=== PATIENT | female | born 1985 | race Caucasian/White ===

== ENCOUNTER 2016-12-07 16:33 | Emergency (ER) | payer MEDICAID ==
[~2016-12-07] VITALS: Ht 170.2 cm; Wt 92.1 kg
[2016-12-07 17:08] VITALS: BP 97/51
--- NOTE | 2016-12-07 17:55 | NUR ---
PT AMBULATED TO ER BED #11.
--- NOTE | 2016-12-07 18:00 | NUR ---
31/F PRESENT TO ER C/O BILATERAL FLANK AND PELVIC PAIN x 5 DAYS. PAIN 9/10, BURNING UPON URINATION, CHILLS. PT DENIES NVD. AAOx4, PERRLA, BREATHING EVEN AND UNLABORED. ERMD NOTIFIED OF PATIENT STATUS.
--- NOTE | 2016-12-07 18:19 | NUR ---
Patient being evaluated by physician at bedside.
[2016-12-07] MEDS ORDERED: NACL 0.9% 1,000 ML IV SCH (18:20)
[2016-12-07] MEDS ORDERED: KETOROLAC 30 MG/ML VIAL IVP ONE (18:20)
[2016-12-07] MEDS ORDERED: ONDANSETRON 4 MG/2 ML VIAL IVP ONE (18:20)
[2016-12-07 18:45] LABS: BASOPHILS # (AUTO) 0.2 K/uL (0.00-0.22); BASOPHILS % (AUTO) 2.3 % (0.0-2.0); EOSINOPHILS # (AUTO) 0.1 K/uL (0-0.4); EOSINOPHILS % (AUTO) 1.2 % (0.0-4.0); HEMATOCRIT 43.5 % (36-48); HEMOGLOBIN 14.3 g/dL (12.0-16.0); LYMPHOCYTES # (AUTO) 1.6 K/uL (2.5-16.5); LYMPHOCYTES % (AUTO) 20.4 % (20.5-51.1); MEAN CORPUSCULAR HEMOGLOBIN 28 pg (27-31); MEAN CORPUSCULAR HGB CONC 33 g/dL (33-37); MEAN CORPUSCULAR VOLUME 85 fL (80-94); MONOCYTES # (AUTO) 0.6 K/uL (0.8-1.0); MONOCYTES % (AUTO) 7.8 % (1.7-9.3); NEUTROPHILS # (AUTO) 5.6 K/uL (1.8-7.7); NEUTROPHILS % (AUTO) 68.3 % (42.2-75.2); PLATELET COUNT (AUTO) 206 K/uL (140-450); RED BLOOD CELL COUNT(AUTO) 5.13 MIL/uL (4.20-5.40); RED CELL DISTRIBUTION WIDTH 12.5 % (11.6-13.7); WHITE BLOOD COUNT (AUTO) 8.1 K/uL (4.8-10.8)
[2016-12-07] MEDS ORDERED: cefTRIAXone 1,000 MG VIAL ONE (18:45)
[2016-12-07 18:55] LABS: ANION GAP 7.3 (8-16); CARBON DIOXIDE 31.8 mmol/L (21-32); CREATININE 0.6 mg/dL (0.6-1.3); POTASSIUM 4.1 mmol/L (3.5-5.1)
--- NOTE | 2016-12-07 18:56 | NUR ---
PT RESTING, FAMILY AT BEDSIDE. VSS; PATIENT POSITIONED FOR COMFORT; HOB ELEVATED; BEDRAILS UP X2; BED DOWN. ER MD MADE AWARE OF PT STATUS.
[2016-12-07 19:01] LABS: ALBUMIN 4.2 g/dL (3.4-5.0); TOTAL BILIRUBIN 0.2 mg/dL (0.0-1.0)
[2016-12-07 19:14] LABS: BILIRUBIN,URINE NEGATIVE (NEGATIVE); BLOOD, URINE 1+ (NEGATIVE); LEUKOCYTE ESTERASE ,URINE NEGATIVE (NEGATIVE); NITRITE, URINE NEGATIVE (NEGATIVE); UGLUCOSE NEGATIVE (NEGATIVE)
--- NOTE | 2016-12-07 19:15 | NUR ---
RECEIVED REPORT FROM BREONNA DAVIS. PT AWAKE AND RESTING COMFORTABLY, DENIES ANY PAIN AT THIS TIME. AT BEDSIDE.
[2016-12-07 19:16] LABS: APPEARANCE,URINE CLEAR (CLEAR); COLOR,URINE STRAW (YELLOW)
--- NOTE | 2016-12-07 19:19 | NUR ---
Pt report given to RYAN OLIVEIRA. Transfer of care at this time.
[2016-12-07 19:35] LABS: RBC,URINE 0-5 (RARE) /HPF (0-5); WBC,URINE NONE SEEN /HPF (0-5)
--- NOTE | 2016-12-07 19:45 | NUR ---
Patient discharged with v/s stable. Written and verbal after care instructions given and explained. Patient alert, oriented and verbalized understanding of instructions. Ambulatory with steady gait. All questions addressed prior to discharge. ID band removed. Patient advised to follow up with PMD. Rx of ZOFRAN ODT 4MG ONE TAB EVERY 8 HOURS PO PRN, NAPROSYN 375MG ONE TAB 2 TIMES A DAY WITH MEAL, CEPHELEXIN 500MG ONE CAPSULE PO 4 TIMES A DAY X 10 DAYS given. Patient educated on indication of medication including possible reaction and side effects. Opportunity to ask questions provided and answered. IV removed, catheter intact and site benign. Applied folded 4x4 gauze and tape to stop bleeding.
[2016-12-07 19:51] VITALS: BP 109/71
== END 2016-12-07 19:45 | disposition home or self-care (01) ==
LOC: MED 16:33 → EDBD 16:33 → MED 19:45
DX: N12 Tubulo-interstitial nephritis, not specified as acute or chronic (principal); R20.2 Paresthesia of skin
CPT/HCPCS: 36415; 80053; 81001; 81025; 83605; 83690; 85025; 87040; 87086; 96361; 96365; 96375; 99285; J0696; J1885; J2405; J7030; J7060